=== PATIENT | male | born 1975 | race Caucasian/White ===

== ENCOUNTER 2023-12-01 16:28 | Emergency (ER) | payer BC ==
[~2023-12-01] VITALS: Ht 170.2 cm; Wt 86.2 kg
[2023-12-01 16:42] VITALS: BP 134/95; PULSE 87; RESP 18; TEMP 98.3; O2SAT 100
[2023-12-01 17:54] VITALS: BP 136/88; PULSE 78; RESP 18; TEMP 98.2; O2SAT 99
== END 2023-12-01 17:58 | disposition home or self-care (01) ==
LOC: MED 16:28
DX: S09.90XA Unspecified injury of head, initial encounter (principal); W01.198A Fall on same level from slipping, tripping and stumbling with subsequent striking against other object, initial encounter; Y93.89 Activity, other specified; Y92.89 Other specified places as the place of occurrence of the external cause; Y99.8 Other external cause status
CPT/HCPCS: 99281